=== PATIENT | female | born 1955 | race Caucasian/White ===

== ENCOUNTER 2023-04-12 08:28 | Emergency (ER) | payer MEDICARE ==
[~2023-04-12] VITALS: Ht 160 cm; Wt 61.2 kg
[2023-04-12 08:55] VITALS: BP 142/62
[2023-04-12] MEDS ORDERED: Percocet 5-3251 EACH PO (10:52)
== END 2023-04-12 11:05 | disposition home or self-care (01) ==
LOC: ER 08:28
DX: M25.561 Pain in right knee (principal); X50.1XXA Overexertion from prolonged static or awkward postures, initial encounter; Z88.0 Allergy status to penicillin
CPT/HCPCS: 73562-RT; A9270; J1885

== ENCOUNTER 2023-06-18 08:59 | Day surgery (SDC) | payer MEDICARE ==
[~2023-06-18] VITALS: Ht 160 cm; Wt 62.3 kg
[~2023-06-18 08:59] MED LIST: Percocet 5-3251 EACH PO
--- NOTE | 2023-06-18 10:33 | NUR ---
06/18/23 1033 Pily Tapia 1MG OF EPI (1MG/ML) VERIFIED AND ADDED TO THE FIRST BAG OF FLUID USED FOR IRRIGATION AT THE [facility] BY DR MAE.
--- NOTE | 2023-06-18 11:05 | NUR ---
06/18/23 1105 YESICA ZAVALA PT SCRATCHING ARMS AND LEGS. LOTION APPLIED TO AREAS OPEN TO AIR. CURRENTLY PT NOW STATES PAIN 04/04.
--- NOTE | 2023-06-18 11:24 | NUR ---
06/18/23 1124 YESICA ZAVALA PAIN NOW 02/02
[2023-06-18 11:53] VITALS: BP 134/77
== END 2023-06-18 12:02 | disposition home or self-care (01) ==
LOC: ORSCSDS 08:59
PROVIDERS: Orthopaedic Surgery
PROC: 0SJC4ZZ Inspection of Right Knee Joint, Percutaneous Endoscopic Approach (ICD-10-PCS; principal; 2023-06-18 10:15)
DX: S83.241A Other tear of medial meniscus, current injury, right knee, initial encounter (principal); S83.281A Other tear of lateral meniscus, current injury, right knee, initial encounter; M94.261 Chondromalacia, right knee; M67.51 Plica syndrome, right knee
CPT/HCPCS: A9270; J0171; J0690; J1100; J2405; J2704; J3010; J7120